=== PATIENT | male | born 1950 | race Caucasian/White ===

== ENCOUNTER 2018-01-14 12:18 | Outpatient (CLI) | payer MEDICARE ==
--- NOTE | 2018-01-14 14:31 | RAD ---
TWO VIEWS CHEST: Comparison: 11-02-15 History: Bronchitis. Cough for 2-3 months. FINDINGS: Two views of the chest shows a normal sized cardiomediastinal silhouette. Mass-like opacity is seen i n the right hilar region. A small right pleural effusion is seen. No left sided infiltrates or masses are seen. Patient is status post cardiac valve replacement. IMPRESSION: Right hilar opacity may represent an infiltrate. Mass cannot be entirely excluded. Recommend treating and following until resolution. If this area persists, then a CT of the chest may need to be perform ed. POS: [facility]
== END 2018-01-14 12:19 | disposition home or self-care (01) ==
LOC: MADRAD 12:18
PROVIDERS: ATTEND Family Medicine
DX: J40 Bronchitis, not specified as acute or chronic (principal); R91.8 Other nonspecific abnormal finding of lung field
CPT/HCPCS: 71046

== ENCOUNTER 2018-01-20 13:29 | Outpatient (CLI) | payer MEDICARE ==
--- NOTE | 2018-01-20 14:21 | RAD ---
CHEST TWO VIEWS: Comparison: 01-17-15 FINDINGS: Re-demonstration of a right lower lobe mass/opacification due to hyperinflation. Stable opacification of the left lung apices. Sternotomy wires are noted. There is atherosclerosis of the aorta. Prostati c heart valve is identified. IMPRESSION: No significant interval change. POS: [facility]
== END 2018-01-20 13:30 | disposition home or self-care (01) ==
LOC: MADRAD 13:29
PROVIDERS: ATTEND Family Medicine
DX: J40 Bronchitis, not specified as acute or chronic (principal)
CPT/HCPCS: 71046

== ENCOUNTER 2018-02-04 12:47 | Outpatient (CLI) | payer MEDICARE ==
[~2018-02-04 12:47] MED LIST: Iopamidol 370 76% 100 ML VIAL ONE
--- NOTE | 2018-02-04 15:49 | CT ---
CT CHEST WITH CONTRAST: 02/04/18 HISTORY: Hilar mass. COMPARISON: Radiograph 01/20/18. FINDINGS: Corresponding to the radiographic findings is a hypodense mass in the posterior segment right lower l obe with endobronchial extension. There is some peripheral enhancement of this mass with low internal attenuation. This is somewhat triangular shaped in appearance. This mass measures 3.6 x 1.5 x approx imately 3.7 cm. There is extensive right lower lobe bronchiectasis involving all segments. A few valdez pheral central lobular pulmonary nodules are also present likely due to multifocal bronchopneumonia. There is some focal scarring along the right minor fissure extending to the right middle lobe at an a [place] that had previous scarring as well as round pneumonia. There is extensive band-like scarring in the left upper lobe extending to the apex with associated br onchiectasis. This is similar dating back to 2009 CT examination. There is some mildly prominent righ t hilar lymph nodes and subcarinal lymph nodes which appear chronic. No aneurysmal dilatation of the aorta. Dense vascular calcifications of the abdominal aorta. There is narrowing of the celiac trunk a nd superior mesenteric arteries due to plaque. The liver and spleen are unremarkable. Calcified pleural plaque on the right posterior parietal pleur a. No suspicious osteolytic or osteoblastic lesions. No acute osseous abnormality. IMPRESSION: Well defined, somewhat triangular shaped mass in the right lower lobe with peripheral enhancement and central hypodensity. There is an endobronchial extension in the posterior segment right lower lobe. There is extensive adjacent bronchiectatic changes in the lower lobes right worse than left as well a s central lobular opacities in the right lower lobe. Given its central very low attenuation, may refl ect an intraparenchymal abscess versus a pulmonary infarction or underlying mass. Bronchoscopy is war ranted. If bronchoscopy is negative, this can be either closely monitored with a followup CT versus p ercutaneous sampling. POS: [facility]
== END 2018-02-04 12:48 | disposition home or self-care (01) ==
LOC: MADRAD 12:47
PROVIDERS: ATTEND Family Medicine
DX: R91.8 Other nonspecific abnormal finding of lung field (principal)
CPT/HCPCS: 36415; 71260; 82565

== ENCOUNTER 2019-01-27 16:44 | Emergency (ER) | payer MEDICARE ==
[2019-01-27] MEDS ORDERED: Dextrose 50% Abboject 50 ML SYRINGE ONE (17:10)
[2019-01-27 17:31] LABS: #Basophils 0.2 thou/uL (0.0-0.2); #Eosinphils 0.5 thou/uL (0.0-0.7); #Lymphocytes 2.6 thou/uL (1.20-3.40); #Monocytes 1.8 thou/uL (0.11-0.59); #Neutrophils 11.5 thou/uL (1.40-6.50); %Eosinophils 3.2 % (0.0-10.0); %Lymphocytes 15.5 % (21.0-51.0); %Neutrophils 69.3 % (42.0-75.0); Anisocytosis SLIGHT = 6-15 cells (100X) (0-5/hpf); Hypochromia SLIGHT = 6-15 cells (100X) (0-5/hpf); MDiff Complete? YES; Mean Corpuscular Hemoglobin 27.4 pg (27.0-31.0); Mean Corpuscular Volume 94.4 fL (78.0-98.0); Mean Platelet Volume 8.6 fL (7.4-10.4); Platelet Count 278 thou/uL (130-400); Platelet Morphology Comment Appears Adequate; RBC Distribution Width 14.5 % (11.5-14.5); Red Blood Cell (RBC) Count 4.77 mill/uL (4.70-6.10); White Blood Cell (WBC) Count 16.6 thou/uL (4.8-10.8)
[2019-01-27 17:40] LABS: ALT (SGPT) 7 U/L (8-55); AST (SGOT) 15 U/L (5-34); Albumin 3.2 g/dL (3.4-4.8); Alkaline Phosphatase 144 U/L (40-110); Anion Gap 16 mmol/L (10-20); BUN (Urea Nitrogen) 50 mg/dL (8.4-25.7); Bilirubin, Total 0.7 mg/dL (0.2-1.2); Calc. Creatinine Clearance 0 mL/min (70-130); Calcium 8.9 mg/dL (7.8-10.44); Carbon Dioxide 32 mmol/L (23-31); Chloride 92 mmol/L (98-107); Estimated GFR-MDRD 15; Globulin 4.1 g/dL (2.4-3.5); Potassium 3.2 mmol/L (3.5-5.1); Protein, Total 7.3 g/dL (5.8-8.1); Sodium 137 mmol/L (136-145)
[2019-01-27] MEDS ORDERED: Dextrose 5 % And 0.9 % NaCl 1,000 ML ONE ×2 (17:55→18:20)
[2019-01-27] MEDS ORDERED: Piperacillin/Tazobactam 3.375 GM VIAL ONE (18:03)
[2019-01-27] MEDS ORDERED: Sodium Chloride 0.9% 100 ML ONE (18:03)
[2019-01-27] MEDS ORDERED: Aspirin Chewable 81 MG TAB ONE (18:03)
[2019-01-27 18:08] LABS: Glucose 27 mg/dL (80-115); Lipase Less than 4 U/L (8-78)
--- NOTE | 2019-01-27 18:27 | RAD ---
PORTABLE CHEST ONE VIEW: 01/27/19 at 5:54 p.m. HISTORY: Altered mental status. FINDINGS/IMPRESSION: Comparison is made with exam of 10/20/15. The heart is enlarged. There is changes of median sternotomy. There is pulmonary vascular congestion with infiltrates in the lower lung zones. Small effusions may be present. POS: [facility]
[2019-01-27 18:33] LABS: CK (CPK) 81 U/L (30-200)
[2019-01-27 19:07] LABS: Bilirubin Small (Negative); Blood, Urine Negative (Negative); Clarity Slightly Cloudy (Clear); Glucose, Urine (Dipstick) Negative (Negative); Leukocyte Trace (Negative); Nitrite Negative (Negative); Protein, Urine (Dipstick) 100 mg/dL (Neg-Trace)
[2019-01-27 19:19] LABS: RBC/HPF 0-3 HPF (0-3)
[2019-01-27 19:20] LABS: Bacteria/HPF 2+ HPF (None Seen)
--- NOTE | 2019-01-28 07:56 | ER ---
DATE OF SERVICE: 01/27/2019 ADDENDUM: Please refer to the patient's electronic medical record for further details of his visit. In summary, the patient presents with altered mental status that has been progressive over the past 1 to 2 weeks, according to the patient's spouse. On arrival, the patient's spouse was not present and he was initially somnolent, though arousable to physical stimulation. He was able to answer some simple questions, though initial history was quite limited. An Accu-Chek obtained shortly after arrival revealed that his glucose level of 42. This was treated with 1 amp of D50, and the patient's mentation rapidly improved thereafter. However, he has not returned fully to his baseline during his ER stay. Subsequent Accu-Cheks revealed normal glucose levels. The patient was further resuscitated with D5 normal saline to maintain adequate level. When his spouse arrived, further history was obtained. I learned that he had been diagnosed sometime ago with stage III lung cancer, which has not been treated to this point. He has not been significantly ill recently except for increasing somnolence and general weakness. There was no acute change in his condition that prompted the visit today. Findings reveal evidence concerning for multiorgan system failure, with elevated troponin at 0.[address] and T-wave changes on EKG. Additionally, the patient's lactate is elevated at 2.4 as is his white blood cell count at 16.6. His kidney function revealed acute kidney injury with creatinine of 3.95, increased from recent value of 2.7. Even this value was elevated compared with his baseline per the family. He is not hyperkalemic. Chest x-ray reveals patchy infiltrate throughout the right lung [place] and left lower lobe. The patient was covered with antibiotics and, as mentioned above, resuscitated with IV fluids as well. He remained hemodynamically stable throughout his ER stay. On arrival, he was noted to be hypoxic with an SpO2 in the mid 80s. This resolved with supplemental oxygen and improved mental status. He was continued on oxygen throughout the remainder of his ER stay. Intubation was not indicated. I discussed this case with Dr. Chevy Singh, who accepts transfer at [facility] in [place]. The patient's family was updated with findings, plan for admission, all their questions were answered. The patient is in guarded, but stable condition with poor prognosis overall at the time of transfer. Job ID: [id number] [id number]
== END 2019-01-27 18:59 | disposition short-term general hospital (02) ==
LOC: MADERS 16:44
DX: E11.649 Type 2 diabetes mellitus with hypoglycemia without coma (principal); I24.9 Acute ischemic heart disease, unspecified; A41.9 Sepsis, unspecified organism; R41.0 Disorientation, unspecified; I25.2 Old myocardial infarction; F17.210 Nicotine dependence, cigarettes, uncomplicated; Z79.891 Long term (current) use of opiate analgesic; Z79.899 Other long term (current) drug therapy; Z79.82 Long term (current) use of aspirin; Z79.4 Long term (current) use of insulin
CPT/HCPCS: 36415; 36416; 51701; 71045; 80053; 81003; 81015; 82550; 82553; 83605; 83690; 84484; 85025; 87040; 87086; 87804; 93005; 96365; 96375; J1956; J2543; J3490; J7042